=== PATIENT | male | born 1995 | race Two or more races ===

== ENCOUNTER 2018-11-01 21:42 | Emergency (ER) | payer OTHER ==
[~2018-11-01] VITALS: Ht 170.2 cm; Wt 75.7 kg
[2018-11-01] MEDS ORDERED: IV NORMAL SALINE 1,000ML 1,000 ML IV ONE (22:30)
[2018-11-01 23:14] LABS: BASO % 0 % (0-3); EOS # 0.1 x10^3/uL (0.0-0.7); EOS % 1 % (0-3); HEMOGLOBIN 14.9 g/dL (13.0-17.5); LYMPH # 1.6 x10^3/uL (1.0-4.8); LYMPH % 30 % (24-48); MEAN CORPUSCULAR HEMOGLOBIN 32 pg (25-35); MEAN CORPUSCULAR HGB CONC 34 g/dL (31-37); MEAN CORPUSCULAR VOLUME 95 fL (79-100); MONO # 0.5 x10^3/uL (0.0-1.1); MONO % 9 % (0-9); NEUT # 3.1 x10^3uL (1.8-7.7); NEUT % 60 % (31-73); PLATELET COUNT 192 x10^3/uL (140-400); RED BLOOD COUNT 4.65 x10^6/uL (4.30-5.70); RED CELL DISTRIBUTION WIDTH 12.5 % (11.5-14.5); WHITE BLOOD COUNT 5.2 x10^3/uL (4.0-11.0)
[2018-11-01 23:28] LABS: ALBUMIN 4.5 g/dL (3.4-5.0); ALBUMIN/GLOBULIN RATIO 1.3 (1.0-1.7); CALCIUM 9.5 mg/dL (8.5-10.1); CREATININE 1.2 mg/dL (0.7-1.3); GFR 75.7; POTASSIUM 4.2 mmol/L (3.5-5.1); TOTAL BILIRUBIN 0.6 mg/dL (0.2-1.0)
[2018-11-01 23:30] LABS: ACETAMIN 10.5 mcg/mL (10-30); ETHANOL < 10 mg/dL (0-10); SALIC 3.2 mg/dL (2.8-20.0)
--- NOTE | 2018-11-01 23:50 | PHYS DOC ---
Past History Past Medical History: Anxiety, Bipolar, Depression Additional Past Medical Histor: OCD, ADD, night terrors, personality disorder, PTSD Past Surgical History: Tonsillectomy Smoking: Quit Less Than 1 Year Alcohol Use: Sober Drug Use: Cocaine, Marijuana, Methamphetamine, Phencyclidine Social History Narrative: Drug abuse prior to incarceration Adult General Chief Complaint Chief Complaint: OVERDOSE HPI HPI 23-year-old male presents from [facility] with report of overdose of Tylenol and ibuprofen that occurred at 1830. Patient reportedly took 12 tablets of 325 mg Tylenol as well as 12 tablets of 200 mg ibuprofen. Patient had been given these medications due to pain from facial trauma. The medical staff at the correctional facility had previously discussed case with poison control who asked them to hold patient and then present patient to the ED for Tylenol level at the 4 hour min. Patient reports he initially took some of the medication for pain and subsequently had some thoughts of suicidality. Patient reports he currently has no suicidal intent. Denies any nausea or vomiting. Denies fever or chills. Review of Systems Review of Systems Constitutional: Denies fever or chills Eyes: Denies redness or eye pain HENT: Denies nasal congestion or sore throat Respiratory: Denies cough or shortness of breath Cardiovascular: Denies chest pain or palpitations GI: Denies abdominal pain, nausea, or vomiting : Denies dysuria or hematuria Musculoskeletal: Denies back pain or joint pain Integument: Denies rash or skin lesions Neurologic: Denies headache, focal weakness or sensory changes Psychiatric: Reports suicidal ideation previously which is now resolved Complete systems were reviewed and found to be within normal limits, except as documented in this note. Current Medications Current Medications Current Medications Medications (Trade) Dose Ordered Sig/Allen Start Time Stop Time Status Last Admin Dose Admin Sodium Chloride 1,000 ml @ 1,000 mls/hr 1X ONCE 11/01/18 22:30 11/01/18 23:29 DC 11/01/18 22:52 1,000 MLS/HR Allergies Allergies Allergies Coded Allergies Type Severity Reaction Last Updated Verified No Known Drug Allergies 11/01/18 No Physical Exam Physical Exam Constitutional: Well developed, well nourished, no acute distress, non-toxic appearance. [] HENT: Normocephalic, atraumatic, bilateral external ears normal, oropharynx moist, no oral exudates, nose normal. [] Eyes: PERRLA, EOMI, conjunctiva normal, no discharge. [] Neck: Normal range of motion, no tenderness, supple, no stridor. [] Cardiovascular:Heart rate regular rhythm, no murmur [] Lungs & Thorax: Bilateral breath sounds clear to auscultation [] Abdomen: Bowel sounds normal, soft, no tenderness, no masses, no pulsatile masses. [] Skin: Warm, dry, no erythema, no rash. [] Back: No tenderness, no CVA tenderness. [] Extremities: No tenderness, no cyanosis, no clubbing, ROM intact, no edema. [] Neurologic: Alert and oriented X 3, normal motor function, normal sensory function, no focal deficits noted. [] Psychologic: Affect normal, judgement normal, mood normal. [] Current Patient Data Vital Signs Vital Signs Date Time Temp Pulse Resp B/P (MAP) Pulse Ox O2 Delivery O2 Flow Rate FiO2 11/01/18 21:48 98.6 64 19 96 Room Air Lab Results Laboratory Tests Test 11/01/18 22:50 White Blood Count 5.2 x10^3/uL (4.0-11.0) Red Blood Count 4.65 x10^6/uL (4.30-5.70) Hemoglobin 14.9 g/dL (13.0-17.5) Hematocrit 44.0 % (39.0-53.0) Mean Corpuscular Volume 95 fL (79-100) Mean Corpuscular Hemoglobin 32 pg (25-35) Mean Corpuscular Hemoglobin Concent 34 g/dL (31-37) Red Cell Distribution Width 12.5 % (11.5-14.5) Platelet Count 192 x10^3/uL (140-400) Neutrophils (%) (Auto) 60 % (31-73) Lymphocytes (%) (Auto) 30 % (24-48) Monocytes (%) (Auto) 9 % (0-9) Eosinophils (%) (Auto) 1 % (0-3) Basophils (%) (Auto) 0 % (0-3) Neutrophils # (Auto) 3.1 x10^3uL (1.8-7.7) Lymphocytes # (Auto) 1.6 x10^3/uL (1.0-4.8) Monocytes # (Auto) 0.5 x10^3/uL (0.0-1.1) Eosinophils # (Auto) 0.1 x10^3/uL (0.0-0.7) Basophils # (Auto) 0.0 x10^3/uL (0.0-0.2) Sodium Level 139 mmol/L (136-145) Potassium Level 4.2 mmol/L (3.5-5.1) Chloride Level 103 mmol/L (98-107) Carbon Dioxide Level 28 mmol/L (21-32) Anion Gap 8 (6-14) Blood Urea Nitrogen 15 mg/dL (8-26) Creatinine 1.2 mg/dL (0.7-1.3) Estimated GFR (Cockcroft-Gault) 75.7 BUN/Creatinine Ratio 13 (6-20) Glucose Level 85 mg/dL (70-99) Calcium Level 9.5 mg/dL (8.5-10.1) Magnesium Level 2.0 mg/dL (1.8-2.4) Total Bilirubin 0.6 mg/dL (0.2-1.0) Aspartate Amino Transferase (AST) 22 U/L (15-37) Alanine Aminotransferase (ALT) 23 U/L (16-63) Alkaline Phosphatase 84 U/L (46-116) Total Protein 8.0 g/dL (6.4-8.2) Albumin 4.5 g/dL (3.4-5.0) Albumin/Globulin Ratio 1.3 (1.0-1.7) Salicylates Level 3.2 mg/dL (2.8-20.0) Salicylate Last Dose Date Unknown Salicylate Last Dose Time Unknown Acetaminophen Level 10.5 mcg/mL (10-30) Acetaminophen Last Dose Date Unknown Acetaminophen Last Dose Time Unknown Ethyl Alcohol Level < 10 mg/dL (0-10) EKG EKG @2241 Sinus bradycardia at 58bpm, NO ST elevation, QRS 82ms, QT/QTc 382/378ms Radiology/Procedures Radiology/Procedures [] Course & Med Decision Making Course & Med Decision Making Pertinent Labs and Imaging studies reviewed. (See chart for details) [] Dragon Disclaimer Dragon Disclaimer This electronic medical record was generated, in whole or in part, using a voice recognition dictation system. Departure Departure: Impression: Primary Impression: Overdose Additional Impression: Suicidal behavior Disposition: HOME, SELF-CARE (back to [facility]) Condition: STABLE Referrals: PCP,NO (PCP) Patient Instructions: Overdose, Adult, Suicidal Feelings, How to Help Yourself Problem Qualifiers Primary Impression: Overdose Encounter type: initial encounter Injury intent: intentional self-harm Qualified Codes: T50.902A - Poisoning by unspecified drugs, medicaments and biological substances, intentional self-harm, initial encounter Additional Impression: Suicidal behavior Attempted self-injury: with attempted self-injury Qualified Codes: T14.91XA - Suicide attempt, initial encounter DEVANTE ANDERSON DO Nov 01, 2018 23:50
[2018-11-02 00:02] LABS: BARBITURATES NEG (NEG); BENZODIAZEPINES NEG (NEG); CANNABINOIDS NEG (NEG); COCAINE NEG (NEG); METHADONE NEG (NEG); OPIATES NEG (NEG); PHENCYCLIDINE NEG (NEG)
[2018-11-02 00:05] LABS: AMPHETAMINE/METHAMPHETAMINE NEG (NEG)
[2018-11-02 00:18] VITALS: BP 127/73
--- NOTE | 2018-11-02 00:27 | EKG ---
[address] [address] Test Date: 2018-11-01 Test Time: 22:41:35 Pat Name: BROOKS ORTEGA Department: Room: Gender: M [employer]: [employer]FT[employer]I : 1995 Requested By: DEVANTE ANDERSON Order Number: [id number] Reading MD: Measurements Intervals [place] Rate: 58 P: 52 FL: 158 QRS: -12 QRSD: 82 T: 31 QT: 382 QTc: 378 Interpretive Statements SINUS RHYTHM LEFTWARD AXIS NO SPECIFIC ECG ABNORMALITIES RI6.01 No previous ECG available for comparison
== END 2018-11-02 00:33 | disposition home or self-care (01) ==
LOC: ER 21:42 → EEVIPCON 21:42 → ER 11-02 00:33
DX: T39.1X2A Poisoning by 4-Aminophenol derivatives, intentional self-harm, initial encounter (principal); T39.312A Poisoning by propionic acid derivatives, intentional self-harm, initial encounter; F41.9 Anxiety disorder, unspecified; F31.9 Bipolar disorder, unspecified; F42.9 Obsessive-compulsive disorder, unspecified; F98.8 Other specified behavioral and emotional disorders with onset usually occurring in childhood and adolescence; F60.9 Personality disorder, unspecified; F43.10 Post-traumatic stress disorder, unspecified; Z87.891 Personal history of nicotine dependence; Y92.89 Other specified places as the place of occurrence of the external cause
CPT/HCPCS: 36415; 80053; 80307; 80329; 83735; 85025; 93005; 99285; G0480; 82003; J7030